=== PATIENT | male | born 1990 ===

== ENCOUNTER 2016-06-30 00:27 | Emergency (ER) | payer OTHER ==
--- NOTE | 2016-06-30 02:53 | ED NURSING NOTES ---
Clinical Report - Nurses [facility] [place] [address] 06/30/2016 0:31 Patient: SHANTA TIERNEY TRIAGE Triage time 00:33 Jun 30 2016. Acuity: LEVEL 3. Chief Complaint: SYNCOPE. --00:36 Les Morley R.N. 00:33 06/30/16. BP: 131/75. HR: 74. RR: 18. O2 saturation: 97%. Temp: 97.9 F. Pain level now 09/25. --00:36 Les Morley R.N. Weight: 47.1 kg stated. Height/Length: 62 inches Per Patient. BMI: 19. --00:36 Les Morley R.N. Medications None. --00:34 Les Morley R.N. Allergies No Known Drug Allergy. --00:34 Les Morley R.N. History Arrived by EMS. Historian: patient. ( single syncopal episode glf superficial abrasion to posterior head). This started just prior to arrival. 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 SOCIAL HX: Light tobacco smoker. No alcohol use or drug use. --00:36 Les Morley R.N. Interventions ID band on patient. To treatment room. --00:36 Les Morley R.N. PHYSICAL ASSESSMENT GENERAL / NEURO / PSYCH: Alert. Oriented X 4. Appears in no acute distress. RESPIRATORY: Respirations not labored. Breath sounds within normal limits. CVS: Capillary refill less than 2 seconds. SKIN: Skin is warm and dry. --00:36 Les Morley R.N. NURSING PROGRESS NOTES Call light placed in reach. Side rails up x 1. Bed placed in lowest position. --00:37 Les Morley R.N. Pulse oximeter placed on patient. --00:37 Les Morley R.N. 00:40 06/30/2016 Site #1 started via IV in the right antecubital space with an 20g angiocath, with aseptic technique and good blood return; one attempt. Blood drawn: rainbow set. Labeled in the presence of the patient and sent to the lab. Saline lock flushed with 10 mL saline. --00:40 Irene Conn R.N. 00:55 06/30/2016 Started bag #1 1000 mL IV Fluids IV NS (Saline); bolus of 1000 mL wide open then at 1000 mL/hr via site #1. Allergies verified and confirmed 5 rights. IV patency established. IV site checked: no pain, redness, or swelling. IV flushed thoroughly pre- and post-medication administration. Completed per protocol. --00:55 Les Morley R.N. ( Pt unable to urinate). --01:34 Les Morley R.N. 01:35 06/30/2016 IV Fluids IV NS Discontinued: bag #1 infused upon arrival. Total amount infused: 1000 mL. IV patency established. IV site checked: no pain, redness, or swelling. IV flushed thoroughly. --01:35 Les Morley R.N. 02:10- pt ambulates to restroom with fiance. --02:15 Irene Conn R.N. Patient ID band checked for patient name and birthdate: patient confirmed urine collected with return of yellow-colored mavis-colored clear urine; sample sent to lab. Specimen labeled in the presence of the patient. --02:16 Irene Conn R.N. 02:56 06/30/2016 [id number] PERTUSSIS IM 0.5 mL given. 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 Given in the right deltoid. Allergies verified and confirmed 5 rights. Vaccine information statement provided to the patient. --03:01 Les Morley R.N. DISPOSITION / DISCHARGE Departure time: 0303. Condition at departure: improved. No learning barriers present. Discharge instructions provided and reviewed with the patient. Reviewed warnings. Treatments reviewed. Patient and family verbalized understanding. Written instructions provided in [place]. The patient was discharged by the physician. He was discharged home and accompanied by family. He left the Emergency Department ambulatory and via private vehicle. Family member driving. --03:05 Les Morley R.N. 03:04 06/30/16. BP: 103/67. HR: 58. RR: 18. O2 saturation: 100%. Temp: 97.9 F. Pain level now 0/10. --03:05 Les Morley R.N. 03:05 06/30/2016 Site #1 removed upon discharge. Bandage applied. --03:06 Les Morley R.N. Locked/Released at 06/30/2016 5:09 by Les Morley R.N.
--- NOTE | 2016-06-30 02:53 | ED CLINICAL REPORT ---
Clinical Report - Physicians/Mid Levels [facility] [address] [place] [address] 06/30/2016 0:31 Patient: SHANTA TIERNEY Time Seen: 00:41; initial patient contact. Arrived- By ambulance. Historian- patient. HISTORY OF PRESENT ILLNESS Chief Complaint: SINGLE SYNCOPAL EPISODE. The patient recovered at the scene (lasted a few seconds). This occurred just prior to arrival. Event was witnessed. The patient had preceding symptoms of light-headedness. No preceding symptoms of nausea or chest pain. The patient felt faint. No seizure activity, incontinence or apnea noted. At time of event, he had just stood up. Location of injuries- head. Currently has headache. Similar symptoms previously: None. Recent medical care: Not recently seen/assessed. REVIEW OF SYSTEMS The patient has had a headache. No dizziness, weakness, chest pain, palpitations or abdominal pain. No vomiting, diarrhea or fever. All systems otherwise negative, except as recorded above. PAST HISTORY Negative. Problems: no known problems. Surgeries: No history of previous surgery. Additional Surgeries: no known surgeries. Medications: None. Allergies: No Known Drug Allergy. SOCIAL HISTORY Current every day smoker. No alcohol use or drug use. ADDITIONAL NOTES The nursing notes have been reviewed with agreement regarding the chief complaint, PMH and patient medications and allergies. PHYSICAL EXAM Vital Signs: 06/30/2016 00:33 BP: 131/75. HR: 74. RR: 18. O2 saturation: 97%. Temp: 97.9 F. Have been reviewed as normal. Appearance: Alert. No acute distress. Head: Mild tenderness in the vertex region. Mild swelling in the vertex region. Eyes: Pupils equal, round and reactive to light. No nystagmus. Extraocular movements normal. ENT: Normal ENT inspection. Dry mucous membranes present. Neck: Normal inspection. Neck supple. CVS: Normal heart rate and rhythm. Heart sounds normal. Respiratory: No respiratory distress. Breath sounds normal. Abdomen: Soft and nontender. No organomegaly. The bowel sounds are not abnormal. Skin: Normal skin color. No rash. He has a single small superficial abrasion on the scalp. Extremities: No lower extremity edema. Neuro: Alert. Oriented X 3. Mood/affect normal. Speech normal. Cranial nerves normal (as tested). No cerebellar findings. No motor deficit. LABS, X-RAYS, AND EKG Laboratory Tests: UA-Culture if indicated: (KIERSTEN: 06/30/2016 02:15) ( [facility] 06/30/2016 02:32) Final results Test Result Flag Units (Reference) URINE COLOR YELLOW URINE APPEARANCE CLEAR URINE GLUCOSE NEGATIVE (NEGATIVE) URINE BILIRUBIN NEGATIVE (NEGATIVE) URINE KETONE NEGATIVE (NEGATIVE) URINE SPECIFIC GRAVITY 1.015 (1.010-1.030) URINE PH 6.0 (5.0-8.0) URINE PROTEIN NEGATIVE (NEGATIVE) URINE UROBILINOGEN 0.2 EU/dL (0.2-1.0) URINE NITRITE NEGATIVE (NEGATIVE) URINE BLOOD NEGATIVE (NEGATIVE) URINE LEUK ESTERASE NEGATIVE (NEGATIVE) URINE RBC NONE SEEN rbc/hpf (0-1) URINE WBC 0-1 wbc/hpf (0-1) URINE EPITHELIAL CELLS NONE SEEN EPI/hpf (0-5) URINE BACTERIA NONE SEEN (NONE SEEN) URINE COMMENT CULT NOT INDICATED URINE CULTURES ARE SET-UP BASED ON THE FOLLOWING CRITERIA:POSITIVE NITRITEPOSITIVE LEUKOCYTE ESTERASEGREATER THAN 10 WHITE BLOOD CELLSMODERATE (2+) OR GREATER BACTERIA CBC w Diff: (KIERSTEN: 06/30/2016 00:40) ( [facility] 06/30/2016 01:40) Final results Test Result Flag Units (Reference) WHITE BLOOD COUNT 7.5 K/uL (4.5-11.5) RED BLOOD COUNT 4.42 L M/uL (4.50-5.90) HEMOGLOBIN 12.9 L gm/dL (13.5-17.5) HEMATOCRIT 39.4 L % (41.0-53.0) MEAN CELL VOLUME 89 fL (80-100) MEAN CORPUSCULAR HGB 29 pg (26-34) MEAN CORPUSCULAR HGB CONC 33 g/dL (31-37) RED CELL DISTRIBUTION WIDTH 12.0 % (11.6-14.8) PLATELET COUNT 257 K/uL (150-400) NEUTROPHIL % 47.0 L % (50-75) LYMPH % 43.7 H % (25-40) MONO % 7.8 % (3-14) EOSINOPHIL % 1.2 % (0-4) BASOPHIL % 0.3 % (0-2) Urine Drug Screen: (KIERSTEN: 06/30/2016 02:15) ( [facility] 06/30/2016 02:49) Final results Test Result Flag Units (Reference) AMPHETAMINE/METHAMPHETAMINE NEGATIVE (NEGATIVE) BARBITURATE NEGATIVE (NEGATIVE) BENZODIAZEPINE NEGATIVE (NEGATIVE) CANNABINOID NEGATIVE (NEGATIVE) COCAINE NEGATIVE (NEGATIVE) ECSTASY NEGATIVE (NEGATIVE) METHADONE NEGATIVE (NEGATIVE) OPIATE NEGATIVE (NEGATIVE) The urine drug screen is a qualitative screening test fordrug overdose and abuse. All screen results should beconsidered as presumptive.Drugs screened for are as follows:BenzodiazepinesCocaineAmphetamines/MetamphetaminesTHC (Tetrahydrocannabinol)OpiatesBarbituratesEcstasyMethadonePositive results are unconfirmed. For confirmation, notifythe lab for the specimen to be sent to the reference lab.All confirmations must be performed by a differentmethodology.The ingestion of natural herbal and plant productscontaining Ephedra/Ephedra metabolites can produce in urineone or more substances capable of cross reacting withamphetamine/methamphetamine immunoassays. These testsprovide a preliminary result only. A more specificalternative chemical method must be used to obtain aconfirmed analytical result. CMP: (KIERSTEN: 06/30/2016 00:40) ( MsgRcvd 06/30/2016 01:49) Final results Test Result Flag Units (Reference) GLUCOSE 112 H mg/dL (70-110) BUN 17 mg/dL (7-18) CREATININE 1.0 mg/dL (0.6-1.3) Estimated GFR >60 mL/min Estimated GFR- >60 mL/min Note: Persistent reduction over 3 months in eGFR<60 mL/min/1.73 m2 defines CKD. Patients with eGFR values>=60 mL/min/1.73 m2 may also have CKD if evidence ofpersistent proteinuria. Additional information may be foundat www.kidney.org. SODIUM 141 mmol/L (136-145) POTASSIUM 4.0 mmol/L (3.5-5.1) CHLORIDE 104 mmol/L (98-107) CARBON DIOXIDE 28 mmol/L (21-32) CALCIUM 8.8 mg/dL (8.5-10.1) TOTAL PROTEIN 7.9 g/dL (6.4-8.2) ALBUMIN 3.9 g/dL (3.3-5.0) BILIRUBIN, TOTAL 0.4 mg/dL (0.0-1.0) ALKALINE PHOSPHATASE 88 U/L (46-116) AST (SGOT) 15 U/L (15-37) ALT (SGPT) 17 U/L (12-78) . PROGRESS AND PROCEDURES Disposition: Discharged home in good and improved condition. Condition: good. CLINICAL IMPRESSION Postural syncope. Single superficial abrasion to the scalp. INSTRUCTIONS Drink plenty of fluids. Your Current Medications: CONTINUE TAKING THE FOLLOWING MEDICATIONS: None*. Follow-up: Follow up with your doctor in about two days. Call for an appointment. Screening today revealed the patient's blood pressure to be in the hypertensive range. The patient should follow up with a primary care provider for blood pressure management. (Electronically signed by Romario Rizo Dr. 06/30/2016 2:55)
--- NOTE | 2016-06-30 02:53 | ED NURSING NOTES ---
Clinical Report - Nurses [facility] [place] [address] 06/30/2016 0:31 Patient: SHANTA TIERNEY TRIAGE Triage time 00:33 Jun 30 2016. Acuity: LEVEL 3. Chief Complaint: SYNCOPE. --00:36 Les Morley R.N. 00:33 06/30/16. BP: 131/75. HR: 74. RR: 18. O2 saturation: 97%. Temp: 97.9 F. Pain level now 09/25. --00:36 Les Morley R.N. Weight: 47.1 kg stated. Height/Length: 62 inches Per Patient. BMI: 19. --00:36 Les Morley R.N. Medications None. --00:34 Les Morley R.N. Allergies No Known Drug Allergy. --00:34 Les Morley R.N. History Arrived by EMS. Historian: patient. ( single syncopal episode glf superficial abrasion to posterior head). This started just prior to arrival. 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 SOCIAL HX: Light tobacco smoker. No alcohol use or drug use. --00:36 Les Morley R.N. Interventions ID band on patient. To treatment room. --00:36 Les Morley R.N. PHYSICAL ASSESSMENT GENERAL / NEURO / PSYCH: Alert. Oriented X 4. Appears in no acute distress. RESPIRATORY: Respirations not labored. Breath sounds within normal limits. CVS: Capillary refill less than 2 seconds. SKIN: Skin is warm and dry. --00:36 Les Morley R.N. NURSING PROGRESS NOTES Call light placed in reach. Side rails up x 1. Bed placed in lowest position. --00:37 Les Morley R.N. Pulse oximeter placed on patient. --00:37 Les Morley R.N. 00:40 06/30/2016 Site #1 started via IV in the right antecubital space with an 20g angiocath, with aseptic technique and good blood return; one attempt. Blood drawn: rainbow set. Labeled in the presence of the patient and sent to the lab. Saline lock flushed with 10 mL saline. --00:40 Irene Conn R.N. 00:55 06/30/2016 Started bag #1 1000 mL IV Fluids IV NS (Saline); bolus of 1000 mL wide open then at 1000 mL/hr via site #1. Allergies verified and confirmed 5 rights. IV patency established. IV site checked: no pain, redness, or swelling. IV flushed thoroughly pre- and post-medication administration. Completed per protocol. --00:55 Les Morley R.N. ( Pt unable to urinate). --01:34 Les Morley R.N. 01:35 06/30/2016 IV Fluids IV NS Discontinued: bag #1 infused upon arrival. Total amount infused: 1000 mL. IV patency established. IV site checked: no pain, redness, or swelling. IV flushed thoroughly. --01:35 Les Morley R.N. 02:10- pt ambulates to restroom with fiance. --02:15 Irene Conn R.N. Patient ID band checked for patient name and birthdate: patient confirmed urine collected with return of yellow-colored mavis-colored clear urine; sample sent to lab. Specimen labeled in the presence of the patient. --02:16 Irene Conn R.N. 02:56 06/30/2016 [id number] PERTUSSIS IM 0.5 mL given. (Lot#: [id number], expiration date: 01/20/2018, [employer]: [employer]). Given in the right deltoid. Allergies verified and confirmed 5 rights. Vaccine information statement provided to the patient. --03:01 Les Morley R.N. DISPOSITION / DISCHARGE Departure time: 0303. Condition at departure: improved. No learning barriers present. Discharge instructions provided and reviewed with the patient. Reviewed warnings. Treatments reviewed. Patient and family verbalized understanding. Written instructions provided in [place]. The patient was discharged by the physician. He was discharged home and accompanied by family. He left the Emergency Department ambulatory and via private vehicle. Family member driving. --03:05 Les Morley R.N. 03:04 06/30/16. BP: 103/67. HR: 58. RR: 18. O2 saturation: 100%. Temp: 97.9 F. Pain level now 0/10. --03:05 Les Morley R.N. 03:05 06/30/2016 Site #1 removed upon discharge. Bandage applied. --03:06 Les Morley R.N. Locked/Released at 06/30/2016 5:09 by Les Morley R.N.
--- NOTE | 2016-06-30 02:54 | ED ORDER SUMMARY ---
..... Patient: SHANTA TIERNEY OrderSheet [facility] VisitID: [id number] [place] [address] 26y, M Registration Date/Time: 06/30/2016 ORDER SHEET Weight: 47.1 kg (stated) Allergies: No Known Drug Allergy GENERAL ORDERS: CBC w Diff Urgent (00:53 06/30/2016 Greg Kay) (Ack 0:59 LMuller) (Ack 0:59 ALawrence ER Tech1) (2:16 RCollier R.N.) CMP Urgent (00:53 06/30/2016 Greg Kay) (Ack 0:59 LMuller) (Ack 0:59 ALawrence ER Tech1) (2:16 RCollier R.N.) UA-Culture if indicated Urgent (00:53 06/30/2016 Greg Kay) (Ack 0:59 LMuller) (Ack 0:59 ALawrence ER Tech1) (2:16 RCollier R.N.) Urine Drug Screen Urgent (00:53 06/30/2016 Greg Kay) (Ack 0:59 LMuller) (Ack 0:59 ALawrence ER Tech1) (2:16 RCollier R.N.) MEDICATION ORDERS: Yqgycps-Iurcrq-Hffcc Pertussis IM 0.5 mL (NOW, per protocol) (02:51 06/30/2016 Greg Kay) (3:01 DBeyer R.N.) IV FLUIDS: IV NS : initial bolus none -, then 1000 mL/hr for X1 (NOW) (00:52 06/30/2016 Greg Kay) (0:55 DBeyer R.N.) ORDER SHEET NOTES: [Electronically signed by Romario Rizo Dr. (02:55 06/30/2016)] [Electronically signed by Les Morley R.N. (05:09 06/30/2016)] [Electronically locked/signed by Les Morley R.N. (05:09 06/30/2016)]
--- NOTE | 2016-06-30 02:54 | ED ORDER SUMMARY ---
..... Patient: SHANTA TIERNEY OrderSheet [facility] VisitID: [id number] [place] [address] 26y, M Registration Date/Time: 06/30/2016 ORDER SHEET Weight: 47.1 kg (stated) Allergies: No Known Drug Allergy GENERAL ORDERS: CBC w Diff Urgent (00:53 06/30/2016 Greg Kay) (Ack 0:59 LMuller) (Ack 0:59 ALawrence ER Tech1) (2:16 RCollier R.N.) CMP Urgent (00:53 06/30/2016 Greg Kay) (Ack 0:59 LMuller) (Ack 0:59 ALawrence ER Tech1) (2:16 RCollier R.N.) UA-Culture if indicated Urgent (00:53 06/30/2016 Greg Kay) (Ack 0:59 LMuller) (Ack 0:59 ALawrence ER Tech1) (2:16 RCollier R.N.) Urine Drug Screen Urgent (00:53 06/30/2016 Greg Kay) (Ack 0:59 LMuller) (Ack 0:59 ALawrence ER Tech1) (2:16 RCollier R.N.) MEDICATION ORDERS: Uoexuau-Jmfmjj-Kwovw Pertussis IM 0.5 mL (NOW, per protocol) (02:51 06/30/2016 Greg Kay) (3:01 DBeyer R.N.) IV FLUIDS: IV NS : initial bolus none -, then 1000 mL/hr for X1 (NOW) (00:52 06/30/2016 Greg Kay) (0:55 DBeyer R.N.) ORDER SHEET NOTES: [Electronically signed by Romario Rizo Dr. (02:55 06/30/2016)] [Electronically signed by Les Morley R.N. (05:09 06/30/2016)] [Electronically locked/signed by Les Morley R.N. (05:09 06/30/2016)]
--- NOTE | 2016-06-30 05:10 | ED DISCHARGE INSTRUCTIONS ---
Patient: SHANTA TIERNEY General Instructions [facility] VisitID: [id number] [place] [address] 26y, M Registration Date/Time: 06/30/2016 Postural syncope. Single superficial abrasion to the scalp. INSTRUCTIONS Drink plenty of fluids. Your Current Medications: CONTINUE TAKING THE FOLLOWING MEDICATIONS: None*. Follow-up: Follow up with your doctor in about two days. Call for an appointment. Screening today revealed the patient's blood pressure to be in the hypertensive range. The patient should follow up with a primary care provider for blood pressure management. ADDITIONAL INFORMATION Abrasions Abrasions are skin scrapes. Their treatment depends on how large and deep the abrasion is. Home Care: If you were given a bandage, change it once a day. If your bandage sticks to the wound, soak it in warm water until it loosens. Wash the area with soap and water to remove all the cream/ointment. You may do this in a sink, under a tub faucet or shower. Rinse off the soap and pat dry with a clean towel. Reapply cream/ointment according to your doctor's instructions. This will prevent infection and help prevent the bandage from sticking. Cover the wound with a fresh non-stick bandage (Telfa). Repeat steps 1 to 4 daily, or as directed by your doctor. If the bandage becomes wet or dirty, change it as soon as possible. You may use acetaminophen (Tylenol) or ibuprofen (Motrin, Advil) to control pain, unless another pain medicine was prescribed. [ NOTE : If you have chronic liver or kidney disease or ever had a stomach ulcer or GI bleeding, talk with your doctor before using these medicines.] Do not use ibuprofen in children under six months of age. Follow Up with your physician or this facility as directed by our staff. Most skin wounds heal within ten days. However, an infection may occur despite proper treatment. Therefore, look for the early signs of infection listed below. Get Prompt Medical Attention if any of the following occur: Increasing pain in the wound Increasing redness or swelling Pus coming from the wound Fever of 100.4F (38C) or higher, or as directed by your healthcare provider Fainting:Uncertain Cause Fainting (syncope) is a temporary loss of consciousness ("passing out"). It occurs when blood flow to the brain is reduced. Near-fainting ("near-syncope") is very similar to fainting, but you do not fully "pass out". The common minor causes of fainting include: sudden fear, pain, nausea, emotional stress and overexertion. Suddenly standing up after sitting or lying for a long time can also cause fainting. The more serious causes for fainting are due to either a very slow or very fast or very slow heart beat ("arrhythmia"), other types of heart disease, dehydration, blood loss, seizure, stroke or ruptured blood vessel in the brain. Taking too much high blood pressure medicine can also cause low blood pressure and fainting. The exact cause of your episode is not certain. However, the tests today did not show any of the serious causes of fainting. Sometimes further testing is needed to find out if a serious problem exists. Therefore, it is important that you follow-up with your doctor as advised. Home Care: 1) Rest today. You may resume your normal activities when you are feeling back to normal. It is best to remain with someone who can check on you for the next 24 hours to watch for another episode of fainting. 2) If you become light-headed or dizzy, lie down immediately or sit with your head between your knees. 3) Because we do not know the exact cause of your near fainting spell, it is possible for another spell to occur without warning. Therefore, do not drive a car or operate dangerous equipment, do not take a bath alone (use a shower instead) and do not swim alone until your doctor says that you are no longer in danger of having another fainting spell. Follow Up with your doctor as advised. Get Prompt Medical Attention if any of the following occur: -- Another fainting spell occurs, which is not explained by the common causes listed above -- Chest, arm, neck, jaw, back or abdominal pain -- Shortness of breath -- Severe headache or seizure -- Blood in vomit, stools (black or red color) -- Unexpected vaginal bleeding -- Palpitations (very rapid or very slow or irregular heart beat) -- Signs of stroke: Weakness of an arm or leg or one side of the face Difficulty with speech or vision Extreme drowsiness, confusion, dizziness or fainting You have been given the following additional information: Abrasion Syncope, Unk Cause (Electronically signed by Romario Rizo Dr. 06/30/2016 2:55)
--- NOTE | 2016-06-30 05:10 | ED MAR SUMMARY ---
..... Medication Administration Record [facility] [address] [place] [address] Patient: SHANTA TIERNEY Visit ID: [id number] 26y, M Weight: 47.1 kg Height/Length: 62 in BMI: 19 ALLERGIES: No Known Drug Allergy Start 00:55 06/30/2016 Les Morley RLizzyNLizzy, Stop 01:35 06/30/2016 Les Morley R.N. Medication Administered: IV NS (SALINE), Dose: IV Fluids, Rate: 1000 mL/hr, Bolus: 1000 mL wide open, Dispensed: 1000 mL bag, Site: #1 right AC. Medication Ordered: IV NS : initial bolus none -, then 1000 mL/hr for X1 (NOW). Given 02:56 06/30/2016 Les Morley, RLizzyNLizzy Medication Administered: VYHIKNZ-YAMHWO-VJQZV PERTUSSIS [IM], Dose: 0.5 mL IM. Medication Ordered: Rknvpsm-Xywdjm-Zflac Pertussis IM 0.5 mL (NOW, per protocol).
--- NOTE | 2016-06-30 05:10 | ED MED RECONCILIATION SUMMARY ---
Patient: SHANTA TIERNEY Medication Reconciliation Report [facility] VisitID: [id number] [address] [place] [address] 26y, M Registration Date/Time: 06/30/2016 Weight: 47.1 kg Height/Length: 62 in. BMI: 19.0 ALLERGIES: No Known Drug Allergy The patient's Home Medications are listed below: NONE. The source(s) of the original Home Medication information: Not obtained. The following Medications were given to the patient in the Emergency Department: IV NS IV Fluids bolus 1000 mL wide open, then 1000 mL/hr, administered: 06/30/2016 12:55:00 AM [id number]-[id number]-XYSEX PERTUSSIS [IM] IM 0.5 mL, administered: 06/30/2016 2:56:00 AM The following Medications were prescribed to the patient: None.
--- NOTE | 2016-06-30 05:10 | ED MED RECONCILIATION SUMMARY ---
Patient: SHANTA TIERNEY Medication Reconciliation Report [facility] VisitID: [id number] [address] [place] [address] 26y, M Registration Date/Time: 06/30/2016 Weight: 47.1 kg Height/Length: 62 in. BMI: 19.0 ALLERGIES: No Known Drug Allergy The patient's Home Medications are listed below: NONE. The source(s) of the original Home Medication information: Not obtained. The following Medications were given to the patient in the Emergency Department: IV NS IV Fluids bolus 1000 mL wide open, then 1000 mL/hr, administered: 06/30/2016 12:55:00 AM [id number]-[id number] PERTUSSIS [IM] IM 0.5 mL, administered: 06/30/2016 2:56:00 AM The following Medications were prescribed to the patient: None.
--- NOTE | 2016-06-30 05:10 | ED MAR SUMMARY ---
..... Medication Administration Record [facility] [address] [place] [address] Patient: SHANTA TIERNEY Visit ID: [id number], M Weight: 47.1 kg Height/Length: 62 in BMI: 19 ALLERGIES: No Known Drug Allergy Start 00:55 06/30/2016 Les Morley RLizzyNLizzy, Stop 01:35 06/30/2016 Les Morley R.N. Medication Administered: IV NS (SALINE), Dose: IV Fluids, Rate: 1000 mL/hr, Bolus: 1000 mL wide open, Dispensed: 1000 mL bag, Site: #1 right AC. Medication Ordered: IV NS : initial bolus none -, then 1000 mL/hr for X1 (NOW). Given 02:56 06/30/2016 Les Morley, RLizzyNLizzy Medication Administered: [id number] PERTUSSIS [IM], Dose: 0.5 mL IM. Medication Ordered: Eayekdk-Iykpmk-Thfui Pertussis IM 0.5 mL (NOW, per protocol).
== END 2016-06-30 03:03 | disposition home or self-care (01) ==
LOC: ED SRH 00:27
DX: R55 Syncope and collapse (principal); S00.01XA Abrasion of scalp, initial encounter; X58.XXXA Exposure to other specified factors, initial encounter; Y92.9 Unspecified place or not applicable; Y93.9 Activity, unspecified; Y99.9 Unspecified external cause status; F17.200 Nicotine dependence, unspecified, uncomplicated; Z23 Encounter for immunization
CPT/HCPCS: 90004; 90100; 92760; 92761; 92762; 92763; 92764; 92765; 92766; 92767; 95059